=== PATIENT | male | born 1995 | race American Indian/Alaskan Native ===

== ENCOUNTER 2018-05-04 07:00 | Outpatient (RCR) | payer BC | END 2018-05-08 | disposition home or self-care (01) | LOC: WSPT | DX: S83.512D Sprain of anterior cruciate ligament of left knee, subsequent encounter (principal) ==

== ENCOUNTER 2018-05-19 09:39 | Outpatient (RCR) | payer BC | END 2018-08-17 | disposition home or self-care (01) | LOC: WSPT | DX: S83.512D Sprain of anterior cruciate ligament of left knee, subsequent encounter (principal) ==